=== PATIENT | female | born 1995 ===

== ENCOUNTER 2022-06-17 14:02 | Emergency (ER) | payer SELFPAY ==
--- NOTE | 2022-06-17 14:37 | ED.GENADULT ---
HPI - General Adult General Stated complaint: blood in vomit PMFSH Social History Social History Advance Directives: No Advance Directives Information Provided: No Course Course Course Narrative: This is an RME: Additional HPI, ROS, PE not included below will be deferred to primary provider. 26 year old female with no significant PMH Discharge Plan Discharge Clinical Impression: Eloped from emergency department Patient Disposition: Left Without Being Seen Interventions: LWBS Worksheet Last Done: 06/17/22 15:19 Discharge Date/Time: 06/17/22 15:28
== END 2022-06-17 15:28 | disposition left against medical advice (07) ==
LOC: HO.ED 15:25
PROVIDERS: Emergency Provider Emergency Medicine
DX: K92.0 Hematemesis (principal)